=== PATIENT | female | born 1965 | race Caucasian/White ===

== ENCOUNTER → 2019-07-25 | Outpatient (CLI) | payer BC ==
--- NOTE | 2019-07-25 12:38 | RAD ---
CT Abdomen and Pelvis without contrast History: Hematuria, right-sided pain Technique: Noncontrast CT imaging was performed of the abdomen and pelvis. Multiplanar images are reviewed. Exposure: One or more of the following individualized dose reduction techniques were utilized for this examination: 1. Automated exposure control 2. Adjustment of the mA and/or kV according to patient size 3. Use of iterative reconstruction technique. Comparison: None Findings: There is some motion degradation. No urolithiasis or hydronephrosis is identified. There is a 1 m slightly exophytic hypodense lesion of the mid right kidney, density measurements of a cyst 5 Hounsfield units. Accurate evaluation of abdominal visceral organs is limited without intravenous contrast. There is no obvious focal abnormality of the spleen, liver, or pancreas. Right lobe of the liver is elongated about 19.6 cm although the left lobe does not appear significantly enlarged. There is no adrenal nodularity. There is cholelithiasis. Accurate evaluation of bowel is limited without oral contrast. There is no significant free air, free fluid, bowel dilatation. There is mild scattered colonic diverticulosis not associated with significant inflammatory change. Normal appendix is visualized. There are some phleboliths in the right pelvis. Impression: 1. There is no urolithiasis or hydronephrosis. There is small right renal cyst. 2. There is cholelithiasis. 3. There is scattered colonic diverticulosis, not associated with significant inflammatory change. Electronically signed by: Steve Regalado MD (07/25/2019 12:36 PM) [id number]
== END | disposition home or self-care (01) ==
LOC: CT 10:37
PROVIDERS: ATTEND Family Medicine
DX: N28.1 Cyst of kidney, acquired (principal); K80.20 Calculus of gallbladder without cholecystitis without obstruction; K57.30 Diverticulosis of large intestine without perforation or abscess without bleeding; N28.9 Disorder of kidney and ureter, unspecified; I87.8 Other specified disorders of veins
CPT/HCPCS: 74176